=== PATIENT | female | born 1955 | race Caucasian/White ===

== ENCOUNTER 2018-03-30 21:28 | Outpatient (REF) | payer BC, SELFPAY ==
[2018-03-30 22:10] LABS: ALT 22 U/L (12-78); AST 16 U/L (15-37); Alkaline Phosphatase 97 U/L (46-116); Anion Gap 11.1 mmol/L (3-11); BUN 12 mg/dL (7-18); Bilirubin, Total 0.6 mg/dL (0.2-1.0); CO2 27.9 mmol/L (21.0-32.0); CREATININE 0.84 mg/dL (0.55-1.02); Calcium 9.9 mg/dL (8.5-10.1); Chloride 103 mmol/L (98-107); Glucose 113 mg/dL (70-100); Potassium 4.2 mmol/L (3.5-5.1); Sodium 142 mmol/L (136-145); TSH (W/Ref FT4) 3.22 uIU/mL (0.358-3.74); Total Protein 7.7 g/dL (6.4-8.2)
== END 2018-03-30 21:48 ==
LOC: NCHCN 21:28
PROVIDERS: PCP Physician Assistant Medical; Visit Provider Specialist/Technologist Athletic Trainer
DX: R00.2 Palpitations (principal)
CPT/HCPCS: 80053; 84443

== ENCOUNTER 2018-04-03 00:38 | Outpatient (CLI) | payer BC, SELFPAY ==
--- NOTE | 2018-04-03 14:53 | DI.US_ITS ---
SYMPTOMS/DIAGNOSIS: NEAR SYNCOPE, R55 CAROTID ULTRASOUND: There is mild bilateral intimal thickening of the common carotid arteries and a mild amount of echogenic plaque in both common carotid bulbs. Calcific plaque is seen in the proximal left internal carotid artery. The velocity measurements obtained are within the normal range. No significant stenosis is visible. The vertebral arteries show antegrade flow. IMPRESSION: No significant internal carotid artery stenosis. Mild plaque, left greater than right.
== END 2018-04-03 00:58 ==
PROVIDERS: PCP Physician Assistant Medical; Visit Provider Specialist/Technologist Athletic Trainer
DX: R55 Syncope and collapse (principal); I65.23 Occlusion and stenosis of bilateral carotid arteries
CPT/HCPCS: 93880

== ENCOUNTER 2018-04-06 02:52 | Outpatient (CLI) | payer BC, SELFPAY | END 2018-04-06 03:12 | PROVIDERS: PCP Physician Assistant Medical; Visit Provider Specialist/Technologist Athletic Trainer | DX: R00.2 Palpitations (principal); I49.3 Ventricular premature depolarization; I49.1 Atrial premature depolarization | CPT/HCPCS: 93225 ==

== ENCOUNTER 2018-04-10 13:38 | Outpatient (CLI) | payer BC, SELFPAY ==
--- NOTE | 2018-04-10 15:45 | HOLTER_ITS ---
Date of dictation: April 10, 2018 Study Indication: Palpitations. Requesting Provider: Maximus Hanley PA-C Findings: The patient was monitored for 2 days. The baseline rhythm was sinus rhythm. Average heart rate 67 bpm, range 50-148 bpm. There was rare ectopy. 529 PVCs, no VT. 28 PACs, 2 atrial runs, longest 11 beats, fastest 147 bpm. There were no pauses greater than 3 seconds. There was no high-degree heart block. There were three patient events; none of these events correlated with arrhythmias. Final Interpretation: Minor arrhythmias.
== END 2018-04-10 13:58 ==
PROVIDERS: PCP Physician Assistant Medical; Visit Provider Specialist/Technologist Athletic Trainer
DX: R00.2 Palpitations (principal); I49.3 Ventricular premature depolarization; I49.1 Atrial premature depolarization
CPT/HCPCS: 93226

== ENCOUNTER 2019-04-16 11:54 | Outpatient (REF) | payer OTHER, SELFPAY ==
--- NOTE | 2019-04-16 11:45 | PAPFT_PTH ---
PATIENT: Natalie Mcguire [facility] U#:[id number] AGE/SX: 63/F ROOM: RE04/16/[address]: Linda Mello : 1955 BED: DIS: 04/16/2019 SPEC #: [id number] RECD: 04/17/19 12:46 STATUS: MAX REQ #: [id number] DEMETRA: 04/16/19 11:[address]: Linda Mello DEPT: [facility] Cytology RECD BY: Lydia Servin ENTERED: 04/17/19 12:47 SP TYPE: PAPFT OTHR DR: Robert Kennedy Tissues: 1 - CX/ENDOCX FOR PAP SMEARS Procedures: PAP THIN PREP/UVM Screening Comments: [id number]
[2019-04-16 21:50] LABS: Anion Gap 9.9 mmol/L (3-11); BUN 16 mg/dL (7-18); CO2 28.1 mmol/L (21.0-32.0); CREATININE 0.75 mg/dL (0.55-1.02); Calcium 9.6 mg/dL (8.5-10.1); Calculated LDL 183 mg/dL (<100); Chloride 103 mmol/L (98-107); Cholesterol 271 mg/dL (<200); Glucose 92 mg/dL (74-106); HDL Cholesterol 73 mg/dL (40-60); Potassium 4.8 mmol/L (3.5-5.1); Sodium 141 mmol/L (136-145); Triglyceride 78 mg/dL (<150)
== END 2019-04-16 12:14 ==
LOC: NCHCN 11:54
PROVIDERS: PCP Physician Assistant Medical; Visit Provider Nurse Practitioner Family
DX: Z00.00 Encounter for general adult medical examination without abnormal findings (principal); Z13.220 Encounter for screening for lipoid disorders; Z13.228 Encounter for screening for other metabolic disorders; Z12.4 Encounter for screening for malignant neoplasm of cervix; Z01.419 Encounter for gynecological examination (general) (routine) without abnormal findings
CPT/HCPCS: 80048; 80061; 88142

== ENCOUNTER 2019-10-30 11:33 | Day surgery (SDC) | payer OTHER, SELFPAY ==
[2019-10-30 11:45] VITALS: BP 129/75; PULSE 66; RESP 18; TEMP 36.5; O2SAT 99
--- NOTE | 2019-10-30 11:45 | DI.RAD_ITS ---
EXAM: XR ANKLE RT COMPLETE CLINICAL HISTORY: Deformity R/O fracture/dislocation. TECHNIQUE: 2D digital imaging was performed. COMPARISON: No exams were available for comparison FINDINGS: BONES: There is a transverse fracture through the base of the medial malleolus. The distal fracture is displaced laterally. There is a partly displaced posterior malleolar fracture. There is a commin uted fracture at the distal metadiaphyseal junction of the right fibula. There is lateral and investment broker ior angulation of the distal fracture. No bony destructive lesion is seen. JOINTS: There is posterior dislocation of the talus relative to the tibia. The talus is laterally an gulated relative to the tibia. SOFT TISSUE: There is soft tissue swelling of the ankle. IMPRESSION: Fracture dislocation of the right ankle. DATA REPOSITORY: RADIATION DOSE DELIVERED:
--- NOTE | 2019-10-30 11:54 | ED.GENADUL_ITS ---
Discharge Plan Disposition Patient Disposition: [facility] INPATIENT Condition: Good Discharge Details Chief Complaint: Orthopedic Attending Provider: Paul Leon Primary Care Provider: Robert Kennedy ED Provider: Ivette Mcdonald Discharge Instructions Additional Instructions: Ankle ORIF Discharge Instructions Activity: You are NON WEIGHT BEARING. You should keep the leg elevated as much as possible. You may wiggle your toes and move your hip and knee. You should use crutches or a walker or knee scooter to support your non-weight bearing status. Dressings: You should keep your splint clean and dry. Do NOT get wet or dirty. If you have issues with your splint, please call the office at [phone] or the hospital after hours. Medications: - You should take Tylenol and Ibuprofen around the clock for baseline pain. - You have been prescribed a stronger narcotic for breakthrough pain. - You should take a Baby Aspirin (81mg) twice a day for blood clot prevention. Follow-up: 2 weeks If you have any acute concerns or questions, please do not hesitate to contact the office at [phone]. You may contact Dr. Leon with any questions after hours through the hospital at [phone] or on his cell phone at [phone]. Forms: Crutch Training Instructions, DSU Post op Instructions, Jackson Romero (DSU) Discharge Data Discharge Date/Time-TO BE ENTERED AT DEPARTURE: 10/30/19 13:50 Medical Decision Making 64-year-old female presents to the ER with right ankle pain and deformity after a twisting type injury approximately 1 hour prior to arrival. Patient states that she was fishing with her grandchildren and twisted and fell heard a pop. Denies any other injuries no neck back pain or head injury no knee pain. Upon initial exam she does have a obvious deformity to the right ankle, dorsal pedal pulses palpable, CMS intact distally. Cap refill less than 2 seconds. She is alert and oriented x3 did not take any medications prior to arrival. She rates her pain moderate to severe on a scale. IV start patient was given 0.5 mg Dilaudid and Zofran and x-rays are ordered at this time. CLINICAL HISTORY: Deformity R/O fracture/dislocation. TECHNIQUE: 2D digital imaging was performed. COMPARISON: No exams were available for comparison FINDINGS: BONES: There is a transverse fracture through the base of the medial malleolus. The distal fracture is displaced laterally. There is a partly displaced posterior malleolar fracture. There is a comminuted fracture at the distal metadiaphyseal junction of the right fibula. There is lateral and posterior angulation of the distal fracture. No bony destructive lesion is seen. JOINTS: There is posterior dislocation of the talus relative to the tibia. The talus is laterally angulated relative to the tibia. SOFT TISSUE: There is soft tissue swelling of the ankle. IMPRESSION: Fracture dislocation of the right ankle. Discussed results with patient and plan to consult with orthopedic surgeon. Patient verbalized understanding. 1237: Will page Orthopedics for consult. 1239: Dr. Leon at bedside for patient evaluation he recommends a posterior long-leg splint for immobilization, hematoma block and mild attempt at reduction to place extremity in a more anatomically correct position. Plan is for patient to go to the OR this afternoon for dislocation fracture repair. He is discussing the procedure to patient who verbalizes understanding and wishes to proceed this afternoon with surgery. Discussed hematoma block with patient 1% lidocaine approximately 9 mils was injected to the dorsal aspect laterally just adjacent to the deep peroneal nerve and superficial peroneal nerve. Anesthesia was partially obtained patient tolerated procedure well. Posterior Ortho-Glass splint applied as noted in procedure note above, CMS intact post application. Patient transported to the OR by OR staff remained hemodynamically stable throughout stay in the ED. HPI General Mode of arrival: wheelchair . Date/Time Provider Initiated Documentation: 10/30/19 11:42 . Limitations to Documentation: no limitations . Information obtained by: patient . HPI Narrative: 64-year-old female presents to the ER with right ankle pain and deformity after a twisting type injury approximately 1 hour prior to arrival. Patient states that she was fishing with her grandchildren and twisted and fell heard a pop. Denies any other injuries no neck back pain or head injury no knee pain. Upon initial exam she does have a obvious deformity, dorsal pedal pulses palpable, CMS intact distally. Cap refill less than 2 seconds. She is alert and oriented x3 did not take any medications prior to arrival. She rates her pain moderate to severe on a scale. Related Data Home Medications Medication Instructions Recorded Confirmed aspirin [Aspirin Low-Strength] 81 mg PO DAILY tab-cap 08/07/12 10/30/19 calcium carb and citrate-vitD3 1 ea PO DAILY 08/07/12 10/30/19 acetaminophen 500 mg PO Q4H PRN #30 cap 10/30/19 ibuprofen 600 mg PO TID PRN #30 tab 10/30/19 oxycodone 5 mg PO Q8H PRN #10 tab MDD 15mg 10/30/19 Previous Rx's Medication Instructions Recorded acetaminophen 500 mg PO Q4H PRN #30 cap 10/30/19 ibuprofen 600 mg PO TID PRN #30 tab 10/30/19 oxycodone 5 mg PO Q8H PRN #10 tab MDD 15mg 10/30/19 Allergies Allergy/AdvReac Type Severity Reaction Status Date / Time No Known Allergies Allergy Unverified 10/30/19 11:49 General Stated Complaint: Orthopedic TONEY: 3 Review of Systems Narrative: Constitutional: Negative for weight loss, alert and oriented, well groomed, normal body habitus, appears comfortable. HEENT: Denies trauma, headaches, blurry vision, nasal discharge, sore throat, trouble swallowing. Chest: Denies chest pain, palpitations, irregular rhythm, hypertension. Respiratory: Denies Shortness of breath, cough, hemoptysis. GI: Denies abdominal pain, nausea, vomiting, diarrhea, constipation. : Denies dysuria, hematuria, flank pain, rectal bleeding. Neuro: Denies dizziness, blurry vision, weakness, syncope, headache or facial numbness. Hematologic: Denies easy bruising, intolerance to heat or cold, hair loss. [facility] Medical History Abnormal mammogram of right breast (Acute) Blood glucose elevated (Acute) Dyslipidemia (Acute) Intermittent palpitations (Acute) Kidney stones (Chronic) Near syncope (Acute) Tubular adenoma of colon (Acute) URI, acute (Acute) Surgical History Cervical Procedure (~1983) Chitra - Dr Cano section X 2 Family History Mother Alzheimer disease Father Hypertension Dementia Maternal Grandmother Breast cancer Colon cancer Social History Smoking/Tobacco Use Status: Never Alcohol Intake: current Alcohol Intake frequency: 0-2 drinks per day Alcohol type: wine Substance use type: does not use Do you feel safe at home: Yes Do you feel safe in your relationship?: Yes Exam Narrative Exam Narrative: Constitutional: Alert and oriented x3. Appears stated age. Normal body habitus. Head: Normocephalic, no trauma. Eyes: Pupils PERRLA, Red reflex noted, EOM's intact. Eyelids symmetrical without lesions, discharge, or swelling. ENT: Bilateral TM's WNL, External ear normal to inspection, no mastoid TTP, swelling, or erythema, Nasal turbinates WNL, no nasal discharge. Normal dentition, Posterior pharynx WNL, no exudate. Chest: RRR, Normal S1, S2, distal pulses intact. Resp: Lungs clear to auscultation bilaterally, no wheezes, rales, or rhonchi. Musculoskeletal: Obvious deformity to right lower ankle, foot is externally rotated, dorsal pedal pulses intact, able to wiggle toes, cap refill less than 3 seconds. No deformity noted to her tib-fib, knee is nontender to palpation. No other injuries noted. Skin: No suspicious rashes or lesions. Capillary refill less than 2 sec. Neurologic: Cranial nerves II-XII intact. Alert and oriented x 3. DTR's intact. Hematologic/Lymphatic: No ecchymosis, no lymphadenopathy. Course Vital Signs Vital signs: Vital Signs Temperature 36.5 C 10/30/19 11:45 Pulse 66 10/30/19 11:45 Respiratory Rate 18 10/30/19 11:45 Blood Pressure 129/75 10/30/19 11:45 Pulse Oximetry 99 10/30/19 11:45 Temperature 36.5 C 10/30/19 11:45 Temperature Source Tympanic 10/30/19 11:45 Pulse 66 10/30/19 11:45 Respiratory Rate 18 10/30/19 11:45 Respiratory Effort Non-Labored 10/30/19 11:48 Blood Pressure 129/75 10/30/19 11:45 Blood Pressure Position Sitting 10/30/19 11:45 Pulse Oximetry 99 10/30/19 11:45 Oxygen Delivery Method Room Air 10/30/19 11:45 Oxygen Flow Rate 0 10/30/19 11:45 Pain Level 10 10/30/19 11:45 Procedures Nerve Block Nerve Block 1: Time out performed: No Local Anesthetic: Lidocaine 1% Amount of anesthesia used (mL): 9 Side: right Nerve Blocks: hematoma block (right ankle) Procedure Successful: Yes Patient Tolerated Procedure: well Complications: none Orthopedic Splinting/Casting Injury #1: Side: right Lower Extremity Injury Location: ankle Lower Extremity Immobilizer: posterior splint (Orthoglass and karlos wrap)
[2019-10-30] MEDS: Ondansetron 4 MG/2 ML VIAL IVP (12:15)
[2019-10-30] MEDS: HYDROmorphone 2 MG/ML VIAL 0.5 MG IVP (12:24)
--- NOTE | 2019-10-30 12:25 | NUR.NOTE ---
pulse oximeter on and call muse within reach
[2019-10-30 12:39] VITALS: BP 143/66; PULSE 55; RESP 15; O2SAT 100
[2019-10-30 13:46] VITALS: BP 125/57; PULSE 56; RESP 15; O2SAT 99
--- NOTE | 2019-10-30 14:01 | W.ORTHOCONSU ---
Date of service: 10/30/19 Time of Service: 14:02 History of Present Illness History of Present Illness Chief Complaint: Right Ankle Pain and Deformity Narrative: Natalie is a 64-year-old who was fishing with his grandchildren. She twisted her ankle, felt a pop, and went down. She had notable right ankle pain, deformity, inability to bear weight. She was diagnosed with an ankle fracture dislocation. She denies numbness or tingling. She has no breaks in the skin. She has no major medical comorbidities. She is very active and walks daily without assistive device. She denies any premorbid ankle pain. She has had no sick contacts. She has traveled to [facility]. Consults Consult date: 10/30/19 Requesting physician: Ivette Mcdonald Consult Reason Right ankle fracture Assessment and Plan Assessment and plan (1) Trimalleolar fracture of right ankle: Status: Acute Assessment and plan: Natalie is a 64-year-old with a trimalleolar ankle fracture dislocation of the right ankle. She is otherwise healthy and has no medical comorbidities. She last ate at 9:00 this morning. Given the acute nature of this fracture I am able to get it this afternoon. This does need operative fixation I explained to Natalie that we did fix it today or we have to get a reduced and let the swelling come and go before we proceed with surgery, in approximately a week. She preferred to have it fixed today if possible. Therefore, we will move forward with operative fixation. This will likely involve plate screws to the fibula, 1 or 2 screws in the malleolus and a possible screw or 2 for the posterior malleolus. I reviewed this with her. I discussed risks include bleeding, infection, pain, stiffness, damage nerves and vessels, damage to muscles and tendons, however prominence, however failure, malunion, nonunion, blood clot. Despite these risks, she elects to proceed. Qualifiers: Encounter type: initial encounter Fracture type: closed Qualified Code(s): S82.851A - Displaced trimalleolar fracture of right lower leg, initial encounter for closed fracture Review of Systems All systems reviewed & are unremarkable except as noted in HPI and below PFSH Surgical History Cervical Procedure (~1983) [facility] - Dr Rachael section X 2 Social History Smoking/Tobacco Use Status: Never Alcohol Intake: current Alcohol Intake frequency: 0-2 drinks per day Alcohol type: wine Substance use type: does not use Do you feel safe at home: Yes Do you feel safe in your relationship?: Yes Exam Narrative Exam Narrative: Natalie is sitting up in the hospital bed. She is in no acute distress. Head is normocephalic and atraumatic. Breathing comfortably. No audible wheezing or distress. Heart regular regular and chest clear to auscultation bilaterally. Right ankle is obviously deformed with prominence of the medial, distal aspect, medial malleolus. The foot is externally rotated with posterior displacement. Skin is intact. No blanching. No puckering. Palpable DP pulse. Sensation intact light touch over the deep and superficial peroneal nerve and tibial nerve. Results Last Vital Signs Temp 36.5 C 10/30/19 11:45 Pulse 56 L 10/30/19 13:46 Resp 15 10/30/19 13:46 BP 125/57 L 10/30/19 13:46 Pulse Ox 99 10/30/19 13:46 Imaging Imaging Studies: X-ray of the right ankle shows a fracture dislocation. This appears to be a trimalleolar ankle fracture with medial malleolus fracture, posterior malleolus fracture, and Evans C fibula fracture. No other bony lesions are seen. Bone appears normally mineralized. Mild comminution at the fibular fracture site.
[2019-10-30] MEDS: Bupivacaine 0.5% Pres-Free 30 ML VIAL ×2 (14:18→14:30)
--- NOTE | 2019-10-30 14:30 | DI.RAD_ITS ---
EXAM: XR ANKLE RT 2V CLINICAL HISTORY: FX RIGHT ANKLE TECHNIQUE: 2D and realtime digital imaging was performed. CONTRAST MATERIAL: Refer to procedure report. COMPARISON: CR XR ANKLE RT COMPLETE from 10/30/2019 FINDINGS: Fluoroscopy was provided for Dr. Leon during the performance of an open reduction and internal f ixation of the right ankle fracture dislocation. Please refer to the procedure report for complete d etails. Fluoro time: 45.6 seconds IMPRESSION:
--- NOTE | 2019-10-30 14:32 | W.PM.DSUDISC ---
Documented by User: BRETT Valverde 10/30/19 14:40 Discharge Plan Disposition Patient Disposition: HOME Condition: Good Discharge Details Chief Complaint: Orthopedic Reason For Visit: ORIF right ankle Attending Provider: Paul Leon Primary Care Provider: Robert Kennedy ED Provider: Ivette Mcdonald Home Meds and New Rx's Prescriptions: New acetaminophen 500 mg capsule 500 mg PO Q4H PRN (Reason: pain) Qty: 30 RF: 0 ibuprofen 600 mg tablet 600 mg PO TID PRNQty: 30 RF: 0 oxycodone 5 mg tablet 5 mg PO Q8H MDD 15mg PRN (Reason: pain) Qty: 10 RF: 0 Continued aspirin [Aspirin Low-Strength] 81 MG tablet,chewable 81 mg PO DAILY RF: 0 calcium carb and citrate-vitD3 1 EACH tablet extended release 1 ea PO DAILY RF: 0 Discharge Instructions Additional Instructions: Ankle ORIF Discharge Instructions Activity: You are NON WEIGHT BEARING. You should keep the leg elevated as much as possible. You may wiggle your toes and move your hip and knee. You should use crutches or a walker or knee scooter to support your non-weight bearing status. Dressings: You should keep your splint clean and dry. Do NOT get wet or dirty. If you have issues with your splint, please call the office at [phone] or the hospital after hours. Medications: - You should take Tylenol and Ibuprofen around the clock for baseline pain. - You have been prescribed a stronger narcotic for breakthrough pain. - You should take a Baby Aspirin (81mg) twice a day for blood clot prevention. Follow-up: 2 weeks If you have any acute concerns or questions, please do not hesitate to contact the office at [phone]. You may contact Dr. Leon with any questions after hours through the hospital at [phone] or on his cell phone at [phone]. Equipment/Supplies: Non-Weight Bearing Crutches and Splint Activity:: Elevate Remove Dressings/Wound Care:: Do Not Remove Shower/Bathe:: Cover Diet:: As Tolerated DS: Diagnosis Discharge Diagnosis (1) Trimalleolar fracture of right ankle: Status: Acute Documented by User: Paul Leon MD 10/30/19 15:05 Discharge Plan Disposition Patient Disposition: HOME Condition: Good Discharge Details Chief Complaint: Orthopedic Reason For Visit: ORIF right ankle Attending Provider: Paul Leon Primary Care Provider: Robert Kennedy ED Provider: Ivette Mcdonald Home Meds and New Rx's Prescriptions: New acetaminophen 500 mg capsule 500 mg PO Q4H PRN (Reason: pain) Qty: 30 RF: 0 ibuprofen 600 mg tablet 600 mg PO TID PRNQty: 30 RF: 0 oxycodone 5 mg tablet 5 mg PO Q8H MDD 15mg PRN (Reason: pain) Qty: 10 RF: 0 Continued aspirin [Aspirin Low-Strength] 81 MG tablet,chewable 81 mg PO DAILY RF: 0 calcium carb and citrate-vitD3 1 EACH tablet extended release 1 ea PO DAILY RF: 0 Discharge Instructions Additional Instructions: Ankle ORIF Discharge Instructions Activity: You are NON WEIGHT BEARING. You should keep the leg elevated as much as possible. You may wiggle your toes and move your hip and knee. You should use crutches or a walker or knee scooter to support your non-weight bearing status. Dressings: You should keep your splint clean and dry. Do NOT get wet or dirty. If you have issues with your splint, please call the office at [phone] or the hospital after hours. Medications: - You should take Tylenol and Ibuprofen around the clock for baseline pain. - You have been prescribed a stronger narcotic for breakthrough pain. - You should take a Baby Aspirin (81mg) twice a day for blood clot prevention. Follow-up: 2 weeks If you have any acute concerns or questions, please do not hesitate to contact the office at [phone]. You may contact Dr. Leon with any questions after hours through the hospital at [phone] or on his cell phone at [phone]. Equipment/Supplies: Non-Weight Bearing Crutches and Splint Activity:: Elevate Remove Dressings/Wound Care:: Do Not Remove Shower/Bathe:: Cover Diet:: As Tolerated
[2019-10-30] MEDS: Lactated Ringers 1,000 ML 50 ML IV (15:05)
--- NOTE | 2019-10-30 15:05 | W.PM.DS.N ---
DS: Diagnosis Discharge Diagnosis (1) Trimalleolar fracture of right ankle: Status: Acute Discharge Plan Disposition Patient Disposition: HOME Condition: Good Discharge Details Chief Complaint: Orthopedic Reason For Visit: ORIF right ankle Attending Provider: Paul Leon Primary Care Provider: Robert Kennedy ED Provider: Ivette Mcdonald Home Meds and New Rx's Prescriptions: New acetaminophen 500 mg capsule 500 mg PO Q4H PRN (Reason: pain) Qty: 30 RF: 0 ibuprofen 600 mg tablet 600 mg PO TID PRNQty: 30 RF: 0 oxycodone 5 mg tablet 5 mg PO Q8H MDD 15mg PRN (Reason: pain) Qty: 10 RF: 0 Continued aspirin [Aspirin Low-Strength] 81 MG tablet,chewable 81 mg PO DAILY RF: 0 calcium carb and citrate-vitD3 1 EACH tablet extended release 1 ea PO DAILY RF: 0 Discharge Instructions Additional Instructions: Ankle ORIF Discharge Instructions Activity: You are NON WEIGHT BEARING. You should keep the leg elevated as much as possible. You may wiggle your toes and move your hip and knee. You should use crutches or a walker or knee scooter to support your non-weight bearing status. Dressings: You should keep your splint clean and dry. Do NOT get wet or dirty. If you have issues with your splint, please call the office at [phone] or the hospital after hours. Medications: - You should take Tylenol and Ibuprofen around the clock for baseline pain. - You have been prescribed a stronger narcotic for breakthrough pain. - You should take a Baby Aspirin (81mg) twice a day for blood clot prevention. Follow-up: 2 weeks If you have any acute concerns or questions, please do not hesitate to contact the office at [phone]. You may contact Dr. Leon with any questions after hours through the hospital at [phone] or on his cell phone at [phone]. Equipment/Supplies: Non-Weight Bearing Crutches and Splint Activity:: Elevate Remove Dressings/Wound Care:: Do Not Remove Shower/Bathe:: Cover Diet:: As Tolerated DS: Data Vitals/I&O Vitals and I&O: Vital Signs Temperature 36.5 C 10/30/19 11:45 Temperature Source Tympanic 09/01/20 11:45 Pulse 56 L 10/30/19 13:46 Respiratory Rate 15 10/30/19 13:46 Respiratory Effort Non-Labored 10/30/19 11:48 Blood Pressure 125/57 L 10/30/19 13:46 Blood Pressure Position Sitting 10/30/19 11:45 Pulse Oximetry 99 10/30/19 13:46 Oxygen Delivery Method Room Air 10/30/19 13:46 Oxygen Flow Rate 0 10/30/19 13:46 Pain Level 1 10/30/19 13:46 Intake & Output 10/29/19 10/30/19 10/30/19 23:59 11:59 23:59 Weight 77.111 kg [facility] Medical History Abnormal mammogram of right breast (Acute) Blood glucose elevated (Acute) Dyslipidemia (Acute) Intermittent palpitations (Acute) Kidney stones (Chronic) Near syncope (Acute) Tubular adenoma of colon (Acute) URI, acute (Acute) Surgical History Cervical Procedure (~1983) [facility] - Dr Cano section X 2 Family History Mother Alzheimer disease Father Hypertension Dementia Maternal Grandmother Breast cancer Colon cancer Social History Smoking/Tobacco Use Status: Never Alcohol Intake: current Alcohol Intake frequency: 0-2 drinks per day Alcohol type: wine Substance use type: does not use Do you feel safe at home: Yes Do you feel safe in your relationship?: Yes
[2019-10-30 17:26] VITALS: BP 146/74; PULSE 57; RESP 18; TEMP 36.2; O2SAT 100
[2019-10-30] MEDS: Ketorolac 15 MG/ML VIAL IVP (17:35)
[2019-10-30] MEDS: Normal Saline Flush 10 ML SYR IVP (17:35)
[2019-10-30 17:59] VITALS: BP 151/74; PULSE 68; RESP 16; TEMP 36.3; O2SAT 100
--- NOTE | 2019-10-30 21:41 | W.PM.OP ---
Date of service: 10/30/19 Time of Service: 16:41 Operative Note Operative Note DATE OF PROCEDURE: 10/30/19 PRE-OP DIAGNOSIS: Right trimalleolar ankle fracture dislocation POST-OP DIAGNOSIS: same PROCEDURE: Open Reduction and Internal Fixation of right ankle fracture SURGEON: Paul Leon RISK SPECIALIST: Caleb Camacho ANESTHESIA: spinal ESTIMATED BLOOD LOSS: 20 PATHOLOGY: none sent TOURNIQUET TIME: 0 COMPLICATIONS: None Patient was transported to: PACU Patient's condition: stable Indications: Natalie is a 64-year-old female who presented to the Emergency Department after a fall. X-rays confirmed the diagnosis of a right trimalleolar ankle fracture dislocation. I reviewed the possible treatment options and given the fracture, I recommended operative fixation. Given the timing and her n.p.o. status is possible to proceed with surgery today. I discussed the technical details of the surgery. I reviewed the risks such as bleeding, infection, pain, stiffness, malunion, nonunion, hardware prominence, hardware faiilure, malrotation, damage to nerves and vessels, blood clot. Despite these risks, she agreed to proceed. Findings: There is a trimalleolar ankle fracture. The medial side was open and there is no joint disruption. Reduction was performed in the fibula and medial malleolus were secured. The posterior malleolus was then inspected and showed to be less than 20% and stable and thus not fixed. Procedure Description: Natalie was greeted in the preoperative area. Consent was previously reviewed and signed. Once in the operating room, anesthesia was administered. The patient was transferred to the fracture table in the supine position. She was positioned in the supine position with the operative side placed onto a bone foam ramp. All bony prominences were well padded. Arms were placed out to the side, padded, and secured. A single dose of TXA, 1 gram, was then administered IV. Prophylactic antibiotics, cefazolin 2 grams, was given for prophylactic antibiotics. A timeout was performed for safe surgery. The right leg was prepped with Chloraprep. The leg was draped with a stockinette and extremity drape. I then made a curvilinear incision overlying the anterior aspect of the medial malleolus extending towards the tip of the medial malleolus. This was dissected bluntly with scissors to expose the fracture. Once the fracture was identified, it was manipulated. It was held open and the joint was inspected. I was able to reduce the talus completely. The ankle joint was irrigated thoroughly and inspected for any cartilage damage or loose bodies or fragments. Once this was confirmed to be free of any loose tissue, the medial Millis fragment was loosely placed back into position. Attention was then turned the fibula. A linear incision was made over the posterior border of the fibula. This was centered over the fracture. The dissection was carried down through the skin only. The dissection was done with scissors to avoid any branches or the main branch of the superficial peroneal nerve, although we were posterior. Without seeing any signs of the nerve, the deeper fascia was incised onto the fibula. The fracture was identified. A subperiosteal dissection was performed around the fracture site to expose the fracture. There is notable comminution at the level of the fracture. The comminuted piece was quite thin and was noted to be in 2 pieces medially. Therefore, focus was taken to the larger distal and proximal fragment. There is a primarily transverse fracture, short oblique, which I did not feel was amenable to a lag screw. The fracture was then reduced and held with a clamp. An 8 hole one third tubular plate was then placed onto the lateral fibula. It was secured distally with a nonlocking screw followed by 2 locking screws. The fracture is in once again inspected to make sure was reduced and held with a clamp. 3 nonlocking screws were placed proximal to the fracture site. X-ray was used to confirm that the fibula was out to length and screws are in appropriate position. I then turned my attention back to the medial side. Using a dental pick the medial fragment was reduced. Reduction was visualized both over the medial surface as well as the anterior medial corner of the plafond. Two 3.5 mm cannulated screws were placed through the fragment. The K wires were first placed and then confirmed on x-ray. Each of these was placed as a 50 mm screw. This had excellent reduction of the fracture site with compression across the fracture. X-rays were then obtained which showed a nearly anatomic reduction of the medially there fragments well to fibular fragment except for the comminution seen at the fibular site. A stress evaluation was performed which showed no gapping of the syndesmosis or the medial clear space. I then focused attention on the lateral view of the posterior malleolar fragment. It appeared to be lined up appropriately with the joint surface. Also some involved less than 20%. Additionally, it did not seem to be displaceable with any anterior posterior drawer or axial loading of the ankle. The single nonlocking screw from the distal fibula was then traded for a locking screw due to its poor purchase. Final x-rays were obtained. The wounds were thoroughly irrigated. The deep tissues were then injected with 0.5 bupivacaine. The periosteal layer was attempted to be closed over the plate with 0 Vicryl. Unfortunately, there is still some periosteum trephinate the plate was therefore not able to be fully closed. The deep tissues then closed with 2-0 Vicryl. The skin was closed with a 3-0 nylon. The medial wound was closed with 2-0 Vicryl and 3-0 nylon. The wounds were dressed with Xeroform, 4 x 4's, ABD and web roll. A short posterior slab splint was then applied. At the end of the case, all counts were correct. Natalie tolerated the procedure well without known complication and was taken to the PACU for recovery. She will be nonweightbearing on the right leg for a likely 6-week period. I will see her back in the office in 2 weeks for wound check and placement of boot.
== END 2019-10-30 18:10 | disposition home or self-care (01) ==
LOC: ER 13:48 → SUR 13:50
PROVIDERS: Emergency Provider Registered Nurse Emergency; PCP Physician Assistant Medical; Visit Provider Student in an Organized Health Care Education/Training Program
PROC: (CPT 27822; principal; 2019-10-30 15:30)
DX: S82.851A Displaced trimalleolar fracture of right lower leg, initial encounter for closed fracture (principal); X50.0XXA Overexertion from strenuous movement or load, initial encounter; G89.18 Other acute postprocedural pain
CPT/HCPCS: 27822; C1713; 29515; 76942; 96374; 96375; 99253; 99285; 73600; 73610; 99284; E0114; J0690; J1885; J2250; J2405

== ENCOUNTER 2019-11-16 08:56 | Outpatient (CLI) | payer OTHER, SELFPAY ==
--- NOTE | 2019-11-16 08:45 | DI.RAD_ITS ---
EXAM: XR ANKLE RT COMPLETE CLINICAL HISTORY: f/u R ankle ORIF TECHNIQUE: COMPARISON: RF XR ANKLE RT 2V from 10/30/2019 CR XR ANKLE RT COMPLETE from 10/30/2019 FINDINGS: Three views were obtained and show plate and screw fixation of medial and lateral malleoli, the ankle mortise is well maintained. No change in alignment of fracture fragments in comparison with previou s intraoperative films of October 29 IMPRESSION: Fix[address] in place as described above RADIATION DOSE DELIVERED: Total DLP
== END 2019-11-16 09:16 ==
PROVIDERS: PCP Physician Assistant Medical; Referring Provider Physician Assistant Medical; Visit Provider Student in an Organized Health Care Education/Training Program
DX: S82.841A Displaced bimalleolar fracture of right lower leg, initial encounter for closed fracture (principal)
CPT/HCPCS: 73610

== ENCOUNTER 2019-12-14 11:44 | Outpatient (CLI) | payer OTHER, SELFPAY ==
--- NOTE | 2019-12-14 11:51 | DI.RAD_ITS ---
EXAM: XR ANKLE RT COMPLETE CLINICAL HISTORY: f/u fracture. TECHNIQUE: 2D digital imaging was performed. COMPARISON: CR XR ANKLE RT COMPLETE from 11/16/2019 FINDINGS: BONES: There are stable post operative changes present. Distal right fibular fracture is stable in a lignment. The fracture line is still well visualized. No new fracture or dislocation. JOINTS: The joint spaces are well maintained. No joint effusion is present. SOFT TISSUE: Soft tissue swelling about the ankle. IMPRESSION: Stable postoperative changes. DATA REPOSITORY: RADIATION DOSE DELIVERED:
== END 2019-12-14 12:04 ==
PROVIDERS: PCP Physician Assistant Medical; Referring Provider Physician Assistant Medical; Visit Provider Physician Assistant
DX: S82.491A Other fracture of shaft of right fibula, initial encounter for closed fracture (principal)
CPT/HCPCS: 73610

== ENCOUNTER 2020-01-11 10:54 | Outpatient (CLI) | payer OTHER, SELFPAY ==
--- NOTE | 2020-01-11 10:30 | DI.RAD_ITS ---
EXAM: XR ANKLE RT COMPLETE CLINICAL HISTORY: f/u R ankle ORIF. TECHNIQUE: 2D digital imaging was performed. COMPARISON: CR XR ANKLE RT COMPLETE from 12/14/2019 FINDINGS: BONES: There are stable post operative changes present. No new fracture or dislocation. The distal r ight fibular and tibial fractures are stable. JOINTS: The joint spaces are well maintained. No joint effusion is present. SOFT TISSUE: There is soft tissue swelling about the ankle. IMPRESSION: Stable postoperative changes. DATA REPOSITORY: RADIATION DOSE DELIVERED:
--- NOTE | 2020-01-11 10:45 | DI.RAD_ITS ---
EXAM: XR FOOT RT LIMITED CLINICAL HISTORY: right foot pain following injury. TECHNIQUE: 2D digital imaging was performed. COMPARISON: No exams were available for comparison FINDINGS: BONES: No acute fracture is present. No bony destructive lesion is seen. Small calcaneal spur is pre sent. JOINTS: No dislocation present. SOFT TISSUE: Extensive soft tissue swelling is seen in the midfoot. IMPRESSION: 1. No acute fracture or dislocation. 2. Extensive soft tissue swelling on the dorsum of the foot. DATA REPOSITORY: RADIATION DOSE DELIVERED:
== END 2020-01-11 11:14 ==
PROVIDERS: PCP Physician Assistant Medical; Referring Provider Physician Assistant Medical; Visit Provider Student in an Organized Health Care Education/Training Program
DX: M79.671 Pain in right foot (principal); M79.89 Other specified soft tissue disorders; S82.891A Other fracture of right lower leg, initial encounter for closed fracture
CPT/HCPCS: 73610; 73620

== ENCOUNTER 2020-02-25 10:51 | Outpatient (CLI) | payer OTHER, SELFPAY ==
--- NOTE | 2020-02-25 10:50 | DI.RAD_ITS ---
EXAM: XR ANKLE RT COMPLETE CLINICAL HISTORY: f/u R ankle ORIF. TECHNIQUE: 2D digital imaging was performed. COMPARISON: CR XR ANKLE RT COMPLETE from 01/11/2020 FINDINGS: Again noted is a lateral fixation plate across the fibular fracture site. Also 2 screws across the m edial malleolus fracture site again noted. There is no evidence of hardware loosening or hardware fr acture. Fracture line in the fibula still evident. Medial malleolus fracture line is also still milka dent. No widening of the mortise. Talar dome appears unremarkable. Small inferior calcaneal spur i s noted. There is no radiographic evidence of osteomyelitis. IMPRESSION: DATA REPOSITORY: RADIATION DOSE DELIVERED:
== END 2020-02-25 11:11 ==
PROVIDERS: PCP Physician Assistant Medical; Referring Provider Physician Assistant Medical; Visit Provider Student in an Organized Health Care Education/Training Program
DX: S82.851A Displaced trimalleolar fracture of right lower leg, initial encounter for closed fracture (principal)
CPT/HCPCS: 73610

== ENCOUNTER → 2020-05-23 04:13 | Outpatient (CLI) | payer OTHER, SELFPAY ==
--- NOTE | 2020-05-23 | DI.MRI_ITS ---
EXAM: MR LUMBAR SPINE WO CLINICAL HISTORY: RT SCIATICA, M54.31. TECHNIQUE: Multiplanar multisequence MRI was performed. COMPARISON: No exams were available for comparison FINDINGS: MR examination lumbosacral spine was performed according to the usual protocol. There is a mild bico nvex thoracolumbar scoliosis, left convex lumbar period No significant bony signal abnormality seen conus medullaris appears intact. No significant finding from the T11-12 level to the L1-2 level. At L2-3, there is a moderate disc bulge. There is no focal disc herniation, central canal spinal wendy nosis, or neural foraminal stenosis. At L 3 4, there is a mild disc bulge and mild facet hypertrophic changes. No focal disc herniation, central canal spinal stenosis, or neural foraminal stenosis. At L4-5, there is moderate disc bulge. No definite focal disc herniation. There is marked facet hyp ertrophy bilaterally with mild central canal spinal stenosis and bilateral lateral recess stenosis ri ght greater than left. There is mild bilateral neural foraminal stenosis noted as well at this level . At L5-S1, there is a mild disc bulge. There is slight pseudo spondylolisthesis of L5 on S1. There i s no central canal spinal stenosis, disc herniation, or neural foraminal stenosis. IMPRESSION: Findings at L4-5 with mild central canal spinal stenosis secondary to disc bulge and bilateral facet hypertrophic changes, there is also bilateral lateral recess stenosis right greater than left and kayla ateral neural foraminal narrowing at this level. Additional findings as described above. DATA REPOSITORY:
== END ==
PROVIDERS: PCP Physician Assistant Medical; Visit Provider Family Medicine
DX: M54.31 Sciatica, right side (principal); M51.17 Intervertebral disc disorders with radiculopathy, lumbosacral region; M48.061 Spinal stenosis, lumbar region without neurogenic claudication
CPT/HCPCS: 72148

== ENCOUNTER 2020-11-11 08:26 | Outpatient (REF) | payer OTHER, SELFPAY ==
[2020-11-11 15:40] LABS: ALT 27 U/L (14-59); AST 13 U/L (15-37); Alkaline Phosphatase 95 U/L (46-116); Bilirubin, Total 0.5 mg/dL (0.2-1.0); Calculated LDL 136 mg/dL (<100); Cholesterol 232 mg/dL (<200); HDL Cholesterol 80 mg/dL (40-60); Total Protein 7.2 g/dL (6.4-8.2); Triglyceride 82 mg/dL (<150)
[2020-11-11 15:53] LABS: Bilirubin, Direct 0.1 mg/dL (0.0-0.2)
== END 2020-11-11 08:27 | disposition home or self-care (01) ==
LOC: NCHCN 08:26
PROVIDERS: PCP Physician Assistant Medical; Referring Provider Family Medicine; Visit Provider Family Medicine
DX: E78.5 Hyperlipidemia, unspecified (principal); I10 Essential (primary) hypertension
CPT/HCPCS: 80061; 80076

== ENCOUNTER 2021-05-12 01:29 | Outpatient (CLI) | payer BC, SELFPAY ==
[2021-05-12 07:59] LABS: Hemoglobin A1C 5.8 % (<5.7)
[2021-05-12 08:37] LABS: ALT 28 U/L (14-59); AST 16 U/L (15-37); Alkaline Phosphatase 99 U/L (46-116); Anion Gap 8.5 mmol/L (3-11); BUN 26 mg/dL (7-18); Bilirubin, Total 0.4 mg/dL (0.2-1.0); CO2 26.5 mmol/L (21.0-32.0); Calcium 9.6 mg/dL (8.5-10.1); Calculated LDL 130 mg/dL (<100); Chloride 104 mmol/L (98-107); Cholesterol 222 mg/dL (<200); Glucose 92 mg/dL (74-106); HDL Cholesterol 79 mg/dL (40-60); Potassium 4.6 mmol/L (3.5-5.1); Sodium 139 mmol/L (136-145); Total Protein 7.3 g/dL (6.4-8.2); Triglyceride 68 mg/dL (<150)
== END 2021-05-12 01:30 | disposition home or self-care (01) ==
LOC: LBO 01:29
PROVIDERS: PCP Physician Assistant Medical; Visit Provider Family Medicine
DX: I10 Essential (primary) hypertension (principal); Z13.1 Encounter for screening for diabetes mellitus; E78.5 Hyperlipidemia, unspecified
CPT/HCPCS: 36415; 80053; 80061; 83036

== ENCOUNTER 2022-06-09 02:54 | Outpatient (CLI) | payer BC, SELFPAY ==
[2022-06-09 08:14] LABS: HCT 41.5 % (36.0-46.0); HGB 13.6 g/dL (11.2-15.7); MCH 30.6 pg (27.0-33.0); MCHC 32.8 % (32.0-36.0); MCV 94 fL (80-95); MPV 9.8 fL (8.0-11.0); Platelet Count 345 10^3/uL (130-400); RBC 4.44 10^6/uL (3.93-5.22); RDW 13.7 % (11.7-14.6); RDW-SD 47.2 fL; WBC 8.18 10^3/uL (4.4-10.8)
[2022-06-09 08:56] LABS: ALT 27 U/L (14-59); AST 15 U/L (15-37); Albumin 3.7 g/dL (3.4-5.0); Alkaline Phosphatase 95 U/L (46-116); Anion Gap 6.9 mmol/L (3-11); BUN 17 mg/dL (7-18); Bilirubin, Total 0.6 mg/dL (0.2-1.0); CO2 31.1 mmol/L (21.0-32.0); CREATININE 0.8 mg/dL (0.55-1.02); Calcium 9.4 mg/dL (8.5-10.1); Calculated LDL 125 mg/dL (<100); Chloride 103 mmol/L (98-107); Cholesterol 215 mg/dL (<200); Estimated GFR 81.72 (mL/min/1.73m2); Glucose 99 mg/dL (74-106); HDL Cholesterol 76 mg/dL (40-60); Potassium 4.2 mmol/L (3.5-5.1); Sodium 141 mmol/L (136-145); Total Protein 7.5 g/dL (6.4-8.2); Triglyceride 70 mg/dL (<150)
[2022-06-09 09:16] LABS: Vitamin D 25 Total 59.3 ng/mL (30-100)
== END 2022-06-09 02:55 | disposition home or self-care (01) ==
LOC: LBO 02:54
PROVIDERS: PCP Family Medicine; Visit Provider Family Medicine
DX: Z00.00 Encounter for general adult medical examination without abnormal findings (principal); I10 Essential (primary) hypertension
CPT/HCPCS: 36415; 80053; 80061; 82306; 85027

== ENCOUNTER 2022-12-01 17:16 | Outpatient (REF) | payer MEDICARE, SELFPAY ==
--- NOTE | 2022-12-01 14:10 | PAPFT_PTH ---
PATIENT: Natalie Mcguire LOC: [facility] U#:[id number] AGE/SX: 67/F ROOM: RE12/01/[address]: Rachel Gan : 1955 BED: DIS: 12/01/2022 SPEC #: [id number] RECD: 12/02/22 12:49 STATUS: MAX REYohana #: [id number] DEMETRA: 12/01/22 14:[address]: Rachel Gan DEPT: [facility] Cytology RECD BY: Lydia Servin Tissues: 1 - CX/ENDOCX FOR PAP SMEARS Procedures: PAP THIN PREP/UVM Screening HPV DNA PROBE Comments: [id number]
== END 2022-12-01 17:17 | disposition home or self-care (01) ==
LOC: LBN 17:16
PROVIDERS: PCP Family Medicine; Visit Provider Family Medicine
DX: Z12.4 Encounter for screening for malignant neoplasm of cervix (principal); Z11.51 Encounter for screening for human papillomavirus (HPV); Z01.419 Encounter for gynecological examination (general) (routine) without abnormal findings
CPT/HCPCS: 88142; 87624

== ENCOUNTER → 2023-06-27 04:50 | Outpatient (CLI) | payer MEDICARE, SELFPAY ==
--- NOTE | 2023-06-27 | DI.MRI_ITS ---
Exam(s) MR LUMBAR SPINE WO EXAM: MR LUMBAR SPINE WO CLINICAL HISTORY: SCIATICA M54.31 RIGHT SIDE. TECHNIQUE: Multiplanar multisequence MRI of the Lumbar spine was performed. COMPARISON: CT RENAL COLIC WO CONTRAST from 06/29/2016 MR MR LUMBAR SPINE WO from 05/23/2020 FINDINGS: Conus medullaris is at L2 level. There is no evidence of conus mass nor subjacent clumping of intrat hecal nerve roots to suggest arachnoiditis. The distal thecal sac appears unremarkable.There is no e vidence of Tarlov intrasacral cysts nor other significant findings within the sacral canal Bones:There are no fractures nor ominous osseous lesions in the lumbar vertebral bodies and visualize d sacrum. With respect to the individual levels... T12-L1: Unremarkable L1-2: Moderately decreased disc height, unchanged. Very mild retrolisthesis L1 upon L2, unchanged. Mild annular bulging without a dominant disc herniation nor central canal stenosis. Also no signific ant foraminal stenosis. Facets unremarkable. L2-3: Significant disc space narrowing again noted, more so on the left than the right side with mild Modic type 1 sub endplate marrow edema changes on the left side of the disc space noted. Mild retro listhesis of L2 upon L3 is again noted with relatively symmetrical annular bulging and no dominant di sc herniation nor central canal stenosis. There is no significant narrowing of the exiting right clement ral foramen. On the left side there is mild narrowing of the exiting left neural foramen due to the increased disc height loss on the left side. This results in mild left-sided foraminal stenosis, unc hanged from previous. Facet joints appear unremarkable. L3-4: This level exhibits relatively preserved disc height but with asymmetric narrowing of the left side of the disc space. There is mild symmetrical annular bulging at this level. No dominant disc h erniation. Central canal dimensions are lower normal. Mild posterior bony ridging noted on the left side. However, there is no significant foraminal stenosis on either side.Central canal dimensions a re lower normal.Minimal facet joint degenerative changes. L4-5: This level again exhibits advanced disc space narrowing on the right side of the disc space, va cuum phenomenon of centrally in the disc space, and lesser narrowing of the left side of the disc spa ce. There is mild anterolisthesis of L4 upon L5 again noted related to facet arthropathy. There is moderate central spinal canal stenosis again noted at this level due to combination of short AP dimen sions of the pedicles, broad annular bulging related to the listhesis as well as facet arthropathy. There is also a Schmorl's node invagination in the posterior aspect of the superior endplate of L4 wh ich was not evident on the prior MRI of April 2020. in addition to moderate canal stenosis, there is moderate narrowing of the exiting right neural foramen, this causing asymmetric right-sided foraminal stenosis at this level, this mostly related to the more prominent disc height loss on the right side of this disc space when compared to the left side. There also Modic type 1 sub endplate marrow madlein a changes at this level. There is no significant foraminal stenosis on the left side at this level, similar to previous. Facet joints exhibit significant degenerative changes at this level. Findings at this level exhibit only minimal change from prior MRI scan of April 2020 L5-S1: This level again exhibits chronic decreased disc height and signal. Also mild anterolisthesis L5 upon S1. There is no prominent disc herniation. There is mild-moderate central canal stenosis a gain noted due to the listhesis, short AP dimensions of the pedicles and degenerative changes in the facet joints. There is significant foraminal stenosis on the right side at this level which is predo minately vertical foraminal stenosis and the exiting right-sided nerve root at this level is again no roxy be compressed between the overlying right L5 pedicle and subjacent pseudo herniation of the annul us. There is no foraminal stenosis on the opposite-left side at this level. Facet arthropathy again noted. Soft tissues: paraspinal soft tissues appear unremarkable. IMPRESSION: 1. Significant multilevel findings as described individually above but with only minimal if any signi ficant change when compared to the prior MRI study of 05/23/2020. 2. The amount of central canal stenosis and foraminal stenosis at the various levels is basically unc hanged from the previous study. 3. The amount of anterior slippage-listhesis of L4 upon L5 and L5 upon S1 is also unchanged from 04/29, as is the amount of mild retrolisthesis of L2 upon L3 and L1 upon L2. 4. Modic type 1 sub endplate marrow edema changes are again noted at L2-3 and L4-5 levels. DATA REPOSITORY:
== END ==
PROVIDERS: PCP Family Medicine; Visit Provider Family Medicine
DX: M51.37 Other intervertebral disc degeneration, lumbosacral region (principal)
CPT/HCPCS: 72148

== ENCOUNTER 2023-10-24 17:59 | Outpatient (REF) | payer MEDICARE, SELFPAY ==
[2023-10-24 21:00] LABS: Bilirubin Negative (Negative); Blood Negative (Negative); Clarity Clear (Clear); Glucose Negative (Negative); Ketones Negative (Negative); Leukocyte Esterase Trace (Negative); Nitrite Negative (Negative); Urobilinogen 0.2 mg/dL (Up to 0.2)
[2023-10-24 21:09] LABS: ALT 24 U/L (14-59); AST 19 U/L (15-37); Albumin 3.9 g/dL (3.4-5.0); Alkaline Phosphatase 96 U/L (46-116); Anion Gap 9.7 mmol/L (3-11); BUN 11 mg/dL (7-18); Bacteria Rare HPF (Negative); Bilirubin, Total 0.63 mg/dL (0.2-1.0); C & S Indicated? No; CO2 26.3 mmol/L (21.0-32.0); CREATININE 0.8 mg/dL (0.55-1.02); Calcium 9.8 mg/dL (8.5-10.1); Casts Negative LPF (Negative); Chloride 101 mmol/L (98-107); Crystals Negative HPF (Negative); Epithelial Cells Rare HPF (Negative); Estimated GFR 81.21 (mL/min/1.73m2); Glucose 93 mg/dL (74-106); Mucus Negative (Negative); Other Cells Rare Transitional (Negative); Potassium 4.6 mmol/L (3.5-5.1); RBC 0-2 HPF (0-2); Sodium 137 mmol/L (136-145); Total Protein 6.9 g/dL (6.4-8.2)
== END 2023-10-24 18:00 | disposition home or self-care (01) ==
LOC: NCHCN 17:59
PROVIDERS: PCP Family Medicine; Visit Provider Family Medicine
DX: R82.998 Other abnormal findings in urine (principal)
CPT/HCPCS: 80053; 81003; 81015

== ENCOUNTER 2023-12-30 11:19 | Outpatient (CLI) | payer MEDICARE, SELFPAY ==
[2023-12-30 08:35] LABS: HCT 44.8 % (36.0-46.0); HGB 14.4 g/dL (11.2-15.7); MCH 30.4 pg (27.0-33.0); MCHC 32.1 % (32.0-36.0); MCV 95 fL (80-95); Platelet Count 334 10^3/uL (130-400); RBC 4.74 10^6/uL (3.93-5.22); RDW 13.7 % (11.7-14.6); RDW-SD 48.1 fL; WBC 7.17 10^3/uL (4.4-10.8)
[2023-12-30 09:18] LABS: ALT 22 U/L (14-59); AST 15 U/L (15-37); Albumin 3.6 g/dL (3.4-5.0); Alkaline Phosphatase 95 U/L (46-116); Anion Gap 7.6 mmol/L (3-11); BUN 14 mg/dL (7-18); Bilirubin, Total 0.78 mg/dL (0.2-1.0); CO2 31.4 mmol/L (21.0-32.0); CREATININE 0.9 mg/dL (0.55-1.02); Calcium 9.7 mg/dL (8.5-10.1); Chloride 105 mmol/L (98-107); Estimated GFR 70.51 (mL/min/1.73m2); Glucose 115 mg/dL (74-106); Potassium 4.5 mmol/L (3.5-5.1); Sodium 144 mmol/L (136-145); Total Protein 7.2 g/dL (6.4-8.2)
== END 2023-12-30 11:20 | disposition home or self-care (01) ==
LOC: LBO 11:19
PROVIDERS: PCP Family Medicine; Visit Provider Family Medicine
DX: I10 Essential (primary) hypertension (principal); R73.03 Prediabetes
CPT/HCPCS: 36415; 80053; 85027

== ENCOUNTER 2024-01-19 02:30 | Outpatient (CLI) | payer MEDICARE, SELFPAY ==
--- NOTE | 2024-01-19 | DI.DEXA_ITS ---
Exam(s) XR DEXA BONE DENSITY W/WO YUNIER EXAM: XR DEXA BONE DENSITY W/WO YUNIER CLINICAL HISTORY: ASYMPTOMATIC MENOPAUSAL STATE Z78.0 TECHNIQUE: Meedor Horizon C densitometer analysis of left hip, lumbar spine and left forearm. Lat eral survey image of the thoracic and lumbar spine. COMPARISON: No exams were available for comparison FINDINGS: Lateral view of the thoracic and lumbar spine shows no evidence of compression fractures. There ar e advanced degenerative changes in the lumbar spine with prominent osteophytes and endplate sclerosis . Mild degenerative scoliosis. Bone mineral density measurements of the lumbar spine correspond to a total T-score of 0.2, in the normal range. Bone mineral density measurements of the left hip correspond to a total T-score of -0.8. The femora l neck T-score is -0.7, in the normal range.. Theleft forearm bone mineral density measurements correspond to a T-score of the distal 3rd of -1.2, in the mildly osteopenic range.. IMPRESSION: Normal bone mineral density of the spine and hip. Mild osteopenia of the forearm.
== END 2024-01-19 02:50 ==
LOC: DI 02:30
PROVIDERS: PCP Family Medicine; Visit Provider Family Medicine
DX: Z78.0 Asymptomatic menopausal state (principal); Z13.820 Encounter for screening for osteoporosis
CPT/HCPCS: 77080

== ENCOUNTER 2025-01-09 09:54 | Outpatient (REF) | payer MEDICARE, SELFPAY ==
[2025-01-09 16:51] LABS: ALT 18 U/L (10-49); AST 19 U/L (<34); Albumin 4.2 g/dL (3.4-5.0); Alkaline Phosphatase 89 U/L (46-116); Anion Gap 5.3 mmol/L (3-11); BUN 15 mg/dL (9-23); Bilirubin, Total 0.60 mg/dL (0.2-1.2); CO2 29.7 mmol/L (20.0-31.0); Calcium 9.7 mg/dL (8.3-10.6); Chloride 106 mmol/L (98-107); Cholesterol 230 mg/dL (<200); Glucose 108 mg/dL (74-106); HDL Cholesterol 84 mg/dL (>40); Potassium 5.0 mmol/L (3.5-5.1); Sodium 141 mmol/L (136-145); Total Protein 6.7 g/dL (5.7-8.2)
[2025-01-09 17:09] LABS: Hemoglobin A1C 5.5 % (<5.7)
== END 2025-01-09 09:55 | disposition home or self-care (01) ==
LOC: NCHCN 09:54
PROVIDERS: PCP Family Medicine; Visit Provider Family Medicine
DX: I10 Essential (primary) hypertension (principal); R73.03 Prediabetes; E78.5 Hyperlipidemia, unspecified
CPT/HCPCS: 80053; 80061; 83036